=== PATIENT | male | born 1995 | race Hispanic/Latino ===

== ENCOUNTER 2021-02-05 13:28 | Emergency (ER) | payer OTHER, SELFPAY ==
--- NOTE | 2021-02-05 14:07 | EDPHYS ---
Physician Documentation [facility] Name: Edil Damon Age: 25 yrs Sex: Male : 1995 Arrival Date: 02/05/2021 Time: 13:30 Bed 15 Private MD: [facility] ED Physician Luis Hu HPI: 02/05 14:06 This 25 yrs old Male presents to ER via Ambulatory with complaints of Swollen kb Glands, Sore Throat. 14:06 The patient presents with sore throat. The patient describes throat pain as constant. kb Onset: The symptoms/episode began/occurred 2 week(s) ago. Severity of symptoms: At their worst the symptoms were moderate, in the emergency department the symptoms are unchanged. Modifying factors: The symptoms are alleviated by nothing, the symptoms are aggravated by swallowing, Patient's oral intake status: good. Associated signs and symptoms: Pertinent positives: fever, Sore throat. The patient has experienced similar episodes in the past, a few times. The patient has not recently seen a physician. Pt reports sore throat, swollen tonsils and intermittent fever for 2 weeks. . Historical: - Allergies: 13:40 TETRACYCLINES; iw 14:21 Minocycline; ll1 - Home Meds: 13:40 amlodipine oral 7.5 mg once daily [Active]; iw - PMHx: 13:40 Hypertensive disorder; iw - PSHx: 13:40 None; iw - Immunization history:: Adult Immunizations Client reports having NOT received the Covid vaccine. - Social history:: Smoking status: Patient denies any tobacco usage or history of. ROS: 14:04 Respiratory: Negative for shortness of breath, cough, wheezing, and pleuritic chest kb pain. 14:04 ENT: Positive for sore throat. 14:04 All other systems are negative. 14:05 Constitutional: Positive for fever. kb Exam: 14:05 Constitutional: This is a well developed, well nourished patient who is awake, alert, kb and in no acute distress. Head/Face: Normocephalic, atraumatic. Respiratory: Respirations even and unlabored. No increased work of breathing, no retractions or nasal flaring. Skin: Warm, dry with normal turgor. Normal color. MS/ Extremity: Pulses equal, no cyanosis. Neurovascular intact. Full, normal range of motion. Neuro: Awake and alert, GCS 15, oriented to person, place, time, and situation. Moves all extremities. Normal gait. Psych: Awake, alert, with orientation to person, place and time. Behavior, mood, and affect are within normal limits. 14:05 ENT: Posterior pharynx: Tonsils: bilaterally enlarged, Uvula: normal, midline, swelling, that is moderate, erythema, that is mild, exudate, is not appreciated. Vital Signs: 13:38 BP 145 / 90; Pulse 69; Resp 16; Temp 98.3; Pulse Ox 100% on R/A; Weight 102.06 kg; iw Height 6 ft. 3 in. (190.50 cm); 14:22 BP 140 / 77; Pulse 83; Resp 16; Pulse Ox 99% on R/A; ll1 14:22 BP 137 / 86; ll1 13:38 Body Mass Index 28.12 (102.06 kg, 190.50 cm) iw MDM: 13:32 Patient medically screened. kb 14:04 Data reviewed: vital signs, nurses notes. Data interpreted: Pulse oximetry: on room air kb is 100 %. Interpretation: normal. Counseling: I had a detailed discussion with the patient and/or guardian regarding: the historical points, exam findings, and any diagnostic results supporting the discharge/admit diagnosis, lab results, the need for outpatient follow up, an ENT specialist, to return to the emergency department if symptoms worsen or persist or if there are any questions or concerns that arise at home. 02/05 13:38 Order name: Strep 02/05 13:38 Order name: Group A Streptococcus Rapid Ct; Complete Time: 14:04 EDMS 02/05 14:03 Order name: Throat Culture EDSC Administered Medications: No medications were administered Disposition: 02/06 03:44 Co-signature as Attending Physician, Luis Hu MD I agree with the assessment and bry plan of care. Disposition Summary: 02/05/21 14:07 Discharge Ordered Location: Home Condition: Stable kb Diagnosis - Acute tonsillitis, unspecified kb Followup: kb - With: Emergency Department - When: As needed - Reason: Worsening of condition Followup: kb - With: Maria Luisa Samson MD - When: 2 - 3 days - Reason: Recheck today's complaints Discharge Instructions: - Discharge Summary Sheet kb - Tonsillitis, [id number] kb Forms: - Medication Reconciliation Form kb - Thank You Letter kb - Antibiotic Education kb - Prescription Opioid Use kb - Work release form eb Prescriptions: - Amoxicillin 875 mg Oral Tablet - take 1 tablet by ORAL route every 12 hours for 10 days; 20 tablet; Refills: 0, kb Product Selection Permitted Signatures: Dispatcher [employer] EDCandelaria Avelar, FELICIANOC SUPERINTENDENT MENAGERIE-Luis Burns MD MD cha Williams, Irene RN RN iw Danika Mckeon RN RN ll1 Corrections: (The following items were deleted from the chart) 02/05 14:05 14:04 Constitutional: Negative for fever, chills, and weight loss, kb kb
--- NOTE | 2021-02-05 14:07 | ER ---
Nurse's Notes [facility] Name: Edil Damon Age: 25 yrs Sex: Male : 1995 Arrival Date: 02/05/2021 Time: 13:30 Bed 15 Private MD: Sergio Collazo Diagnosis: Acute tonsillitis, unspecified Presentation: 02/05 13:38 Chief complaint: Patient states: tonsils and lymph nodes have been swollen X 2 weeks , iw recently had fever. Coronavirus screen: sore throat, Client presents with at least one sign or symptom that may indicate coronavirus-19. Ebola Screen: Patient negative for fever greater than or equal to 101.5 degrees Fahrenheit, and additional compatible Ebola Virus Disease symptoms Patient denies exposure to infectious person. Patient denies travel to an Ebola-affected area in the 21 days before illness onset. No symptoms or risks identified at this time. Initial Sepsis Screen: Does the patient meet any 2 criteria? No. Patient's initial sepsis screen is negative. Does the patient have a suspected source of infection? No. Patient's initial sepsis screen is negative. Risk Assessment: Do you want to hurt yourself or someone else? Patient reports no desire to harm self or others. Onset of symptoms was January 24, 2021. 13:38 Method Of Arrival: Ambulatory iw 13:38 Acuity: JENA 4 iw Historical: - Allergies: 13:40 TETRACYCLINES; iw 14:21 Minocycline; ll1 - Home Meds: 13:40 amlodipine oral 7.5 mg once daily [Active]; iw - PMHx: 13:40 Hypertensive disorder; iw - PSHx: 13:40 None; iw - Immunization history:: Adult Immunizations Client reports having NOT received the Covid vaccine. - Social history:: Smoking status: Patient denies any tobacco usage or history of. Screenin:53 Abuse screen: Denies threats or abuse. Denies injuries from another. Nutritional iw screening: No deficits noted. Tuberculosis screening: No symptoms or risk factors identified. Fall Risk None identified. Assessment: 13:52 General: Appears in no apparent distress. Behavior is calm, cooperative. Pain: iw Complains of pain in throat. Neuro: Level of Consciousness is awake, alert, obeys commands, Oriented to person, place, time, situation, Moves all extremities. Full function. Cardiovascular: Patient's skin is warm and dry. Respiratory: Airway is patent Respiratory effort is even, unlabored, Breath sounds are clear bilaterally. EENT: Throat is reddened has enlarged tonsils bilaterally Reports pain in throat. Derm: Skin is intact, is healthy with good turgor. 14:22 Reassessment: No changes from previously documented assessment. Patient and/or family ll1 updated on plan of care and expected duration. Pain level reassessed. Patient is alert, oriented x 3, equal unlabored respirations, skin warm/dry/pink. Vital Signs: 13:38 BP 145 / 90; Pulse 69; Resp 16; Temp 98.3; Pulse Ox 100% on R/A; Weight 102.06 kg; iw Height 6 ft. 3 in. (190.50 cm); 14:22 BP 140 / 77; Pulse 83; Resp 16; Pulse Ox 99% on R/A; ll1 14:22 BP 137 / 86; ll1 13:38 Body Mass Index 28.12 (102.06 kg, 190.50 cm) iw ED Course: 13:30 Patient arrived in ED. as 13:30 Sergio Collazo DO is Private Physician. as 13:30 Candelaria Duncan [facility]-C [facility] kb 13:30 Luis Hu MD is Attending Physician. kb 13:40 Triage completed. iw 13:41 Arm band placed on. iw 13:52 Talita Amador, RN is Primary Nurse. iw 13:54 No provider procedures requiring assistance completed. Patient did not have IV access iw during this emergency room visit. 14:07 Maria Luisa Samson MD is Referral Physician. kb 14:22 Patient has correct armband on for positive identification. Bed in low position. Call ll1 light in reach. Side rails up X 1. Pulse ox on. NIBP on. Administered Medications: No medications were administered Outcome: 14:07 Discharge ordered by . kb 14:21 Discharged to home ambulatory. ll1 14:21 Condition: stable 14:21 Discharge instructions given to patient, Instructed on discharge instructions, follow up and referral plans. medication usage, Demonstrated understanding of instructions, follow-up care, medications, Prescriptions given X 1. 14:23 Patient left the ED. ll1 Signatures: Candelaria Duncan FNP-C FNP-Ckb Alicia Long Irene, RN RN iw Danika Mckeon, RN RN ll1
[2021-02-05 14:36] VITALS: TEMP 98.3
[2021-02-05 14:38] VITALS: BP 137/86; O2SAT 99
--- OUTSIDE RECORDS SUMMARY | 2021-02-05 23:42 | XMS REPORT | Continuity of Care Document ---
:1995 Author Organization [facility] t Address [address] [place] [address] Care Team Providers Name Role Phone PCP, PATIENT DOES NOT HAVE A Primary Care Physician Chris PAUL Attending Clinician Unavailable Deandre HAZEL Attending Clinician Problems Condition Condition Condition Status Onset Resolution Last Treating Co mments Source Name Details Category Date Date Treatment Clinician Date No known No known Disease Unive rs active active ity of problems problems [facility] Allergies, Adverse Reactions, Alerts Allergy Allergy Status Severity Reaction(s) Onset Inactive Treating Comm ents Source Name Type Date Date Clinician Minocycl Propensi Active Swelling Univ ers ine ty to 04-20 ity of adverse 00:00: [place] reaction 00 Medical s Branch MINOCYCL DRUG Active High Swelling Univer s INE INGREDI 04-20 ity of 00:00: [place] 00 Medical [place] Social History Social Habit Start Date Stop Date Quantity Comments Source Exposure to Not sure [facility] SARS-CoV-2 (event) Medica l Branch Alcohol intake 2021-01-21 2021-01-21 0 /d [facility] 00:00:00 00:00:00 Medical [place] Sex Assigned At [birth year] [facility] 00:00:00 00:00:00 Medical Branch Smoking Status Start Date Stop Date Source Never smoker [facility] Medications Ordered Filled Start Stop Current Ordering Indication Dosage Frequency Signature Comments Components Source Medication Medication Date Date Medication? Clinician (SIG) Name Name amLODIPine 2020-03 Yes [id number] 2.5mg Take 1 Univers 2.5 mg 0-29 tablet by ity of tablet 00:00: mouth at [place] 00 bedtime. Medical Branch amLODIPine 2020-03 Yes [id number] 5mg Take 1 U nivers 5 mg tablet 0-29 tablet by ity of 00:00: mouth [place] 00 daily. Medical Branch amLODIPine 2020- No [id number] 5mg Take 1 Univers 5 mg tablet 9-29 10-29 tablet by it y of 00:00: 00:00 mouth [place] 00 :00 daily. Medical Appointmen Branch t needed for further refills. Please contact office, predniSONE Yes 10mg Take 10 mg U nivers 10 mg 8-24 by mouth ity of tablet 16:02: daily. [place] [address] Medical Branch tretinoin Yes Apply to Uni vers 0.05 % 1-26 affected ity of cream 00:00: area(s) at [place] 00 bedtime. Medical Branch clindamycin 2015-03 Yes [id number] Apply qHS Univers (CLEOCIN T) 0-24 to face ity o f 1 % gel 00:00: after [place] 00 tretinoin Medical cream has Branch dried Vital Signs Vital Name Observation Time Observation Value Comments Source Systolic blood 2021-01-21 20:43:00 155 [facility]Hg[facility] pressure [facility] Diastolic blood 2021-01-21 20:43:00 82 mm[facility]Hg[facility] 2021-01-21 20:41:00 82 /min [facility] Body height 2021-01-21 20:41:00 193 cm [facility] Body weight 2021-01-21 20:41:00 103.874 kg [facility] BMI 2021-01-21 20:41:00 27.87 kg/m2 [facility] Oxygen saturation 2021-01-21 20:41:00 98 /min Uni versity [facility] in Arterial blood Medical Br anch by Pulse oximetry Procedures This patient has no known procedures. Encounters Start End Encounter Admission Attending Care Care Encounter Source Date/Time Date/Time Type Type Clinicians Facility Department ID 2021-02-02 2021-02-02 ambulatory [facility] [id number] [facility]00 [facility] 2021-01-21 2021-01-21 Outpatient Brissa PAUL [facility] [id number] Univers 15:40:00 16:04:32 LATONYA galan [facility] 2021-01-21 2021-01-21 [facility] [id number] Univers 15:25:13 16:04:32 Visit Latonya LAST [id number] In[place] [id number] Daylin POLO [id number] [address] 2021-01-21 2021-01-21 Outpatient Brissa PAUL [facility] [id number] Univers 15:40:00 15:40:00 LATONYA [id number] jeovany magana [facility] 2020-12-15 2020-12-15 [id number]00 [facility] Outpati ent Clinics Results This patient has no known results.
== END 2021-02-05 14:23 | disposition home or self-care (01) ==
LOC: ER 13:28
DX: J03.90 Acute tonsillitis, unspecified (principal); Z88.3 Allergy status to other anti-infective agents
CPT/HCPCS: 87070; 87081; 99283

== ENCOUNTER 2021-02-07 17:31 | Emergency (ER) | payer SELFPAY ==
--- OUTSIDE RECORDS SUMMARY | 2021-02-07 17:34 | XMS REPORT | Continuity of Care Document ---
:1995 Author Organization [facility] t Address [address] [place] [address] Care Team Providers Name Role Phone PCP, PATIENT DOES NOT HAVE A Primary Care Physician Shawa elizabet PAUL Attending Clinician Unavailable Deandre HAZEL Attending Clinician Problems Condition Condition Condition Status Onset Resolution Last Treating Co mments Source Name Details Category Date Date Treatment Clinician Date No known No known Disease Unive rs active active ity of problems problems [facility] Allergies, Adverse Reactions, Alerts Allergy Allergy Status Severity Reaction(s) Onset Inactive Treating Comm ents Source Name Type Date Date Clinician Minocycl Propensi Active Swelling Univ ers ine ty to 04-20 ity of adverse 00:00: [place] reaction 00 [facility] s Branch MINOCYCL DRUG Active High Swelling Univer s INE INGREDI 04-20 ity of 00:00: [place] 00 [facility] Social History Social Habit Start Date Stop Date Quantity Comments Source Exposure to Not sure [facility] SARS-CoV-2 (event) Medica l Branch Alcohol intake 2021-01-21 2021-01-21 0 /d [facility] 00:00:00 00:00:00 [facility] Sex Assigned At [birth year] [facility] [place] 00:00:00 00:00:00 Medical [place] Smoking Status Start Date Stop Date Source Never smoker [facility] Medications Ordered Filled Start Stop Current Ordering Indication Dosage Frequency Signature Comments Components Source Medication Medication Date Date Medication? Clinician (SIG) Name Name amLODIPine 2020-03 Yes [id number] 2.5mg Take 1 Univers 2.5 mg 0-29 tablet by ity of tablet 00:00: mouth at [place] 00 bedtime. Medical Branch amLODIPine 2020-03 Yes [id number] 5mg Take 1 U nivers 5 mg tablet 0-29 tablet by ity of 00:00: mouth [place] 00 daily. Medical Branch amLODIPine [id number] 5mg Take 1 Univers 5 mg tablet 9-29 10-29 tablet by it y of 00:00: 00:00 mouth [place] 00 :00 daily. Medical Appointmen Branch t needed for further refills. Please contact office, predniSONE Yes 10mg Take 10 mg U nivers 10 mg 8-24 by mouth ity of tablet 16:02: daily. [place] [address] Medical Branch tretinoin Yes Apply to Uni vers 0.05 % 1-26 affected ity of cream 00:00: area(s) at [place] 00 bedtime. Medical Branch clindamycin 2015-03 Yes [id number] Apply qHS Univers (CLEOCIN T) 0-24 to face ity o f 1 % gel 00:00: after [place] 00 tretinoin Medical cream has Branch dried Vital Signs Vital Name Observation Time Observation Value Comments Source Systolic blood 2021-01-21 20:43:00 155 mm[Hg] Univer sity [facility] pressure [facility] Branch Diastolic blood 2021-01-21 20:43:00 82 mm[Hg] [facility] Heart rate 2021-01-21 20:41:00 82 /min [facility] Body height 2021-01-21 20:41:00 193 cm [facility] Body weight 2021-01-21 20:41:00 103.874 kg [facility] BMI 2021-01-21 20:41:00 27.87 kg/m2 [facility] Oxygen saturation 2021-01-21 20:41:00 98 /min Uni versity [facility] in Arterial blood Medical Br anch by Pulse oximetry Procedures This patient has no known procedures. Encounters Start End Encounter Admission Attending Care Care Encounter Source Date/Time Date/Time Type Type Clinicians Facility Department ID 2021-02-022021-02-02 ambulatory [facility] [id number] [facility] St 00:00:00 00:00:00 Porsha nava Outpati ent Clinics 2021-01-21 2021-01-21 Outpatient Brissa [facility] [id number] Univers 15:40:00 16:04:32 LATONYA galan [facility] 2021-01-21 2021-01-21 [facility] [id number] Univers 15:25:13 16:04:32 Visit Latonya GROTON [id number] [facility] [id number] Daylin LOPEZESSIO [id number] [address] 2021-01-21 2021-01-21 Outpatient Brissa [facility] [id number] Univers 15:40:00 15:40:00 [facility] [id number] jeovany galan [facility] 2020-12-15 2020-12-15 Outpatient [facility] [id number] [facility] 00:00:00 00:00:00 Porsha nava Outpati ent Clinics Results This patient has no known results.
[2021-02-07] MEDS ORDERED: NA CHLORIDE 0.9% 1,000 ML ONE (18:14)
[2021-02-07 18:34] LABS: Urine Blood Negative (Negative); Urine Glucose Negative (Negative); Urine Protein Negative (Negative)
[2021-02-07 18:42] LABS: Absolute Lymphocytes (CBC) 9.4 K/uL (0.7-4.9); Basophils % 0.5 % (0-1.3); Hematocrit 48.5 % (39.6-49.0); Lymphocytes % 73.3 % (15.3-44.8); RBC Red Blood Cell Count 5.38 M/uL (4.33-5.43)
[2021-02-07 19:17] LABS: Urine Bacteria <20 /HPF (NONE SEEN); Urine RBC NONE SEEN /HPF (NONE SEEN)
[2021-02-07 19:19] LABS: Albumin 3.7 g/dL (3.4-5.0); Bilirubin Direct 2.4 mg/dL (0-0.2); Bilirubin Total 3.4 mg/dL (0.2-1.0); Potassium 4.2 mmol/L (3.5-5.1); Protein, Total 8.2 g/dL (6.4-8.2)
--- NOTE | 2021-02-07 20:33 | RAD REPORT ---
EXAM DESCRIPTION: CT - Abdomen Pelvis W Contrast - 02/07/2021 8:08 pm CLINICAL HISTORY: ABD PAIN COMPARISON: Abdomen Pelvis W Contrast dated 03/01/2016 TECHNIQUE: Biphasic, helical CT imaging of the abdomen and pelvis was performed following 100 ml non -ionic IV contrast. No oral contrast. All CT scans are performed using dose optimization technique as appropriate and may include automated exposure control or mA/KV adjustment according to patient size. FINDINGS: No suspicious findings in the lung bases. The liver, spleen, and pancreas show no suspicious findings. Spleen is prominent similar to prior swetha ging. Gallbladder is tightly contracted limiting assessment. No biliary tree dilatation. Symmetric renal function is seen with no hydronephrosis or suspicious renal mass. No pyelonephritis o r acute parenchymal process. No bladder abnormalities. No adrenal abnormalities. No dilated bowel loops or bowel wall thickening. No direct or indirect evidence for appendicitis. A f ew small mesenteric lymph nodes are present. No free air, free fluid or inflammatory stranding. No h ernia, mass or bulky lymphadenopathy. No suspicious bony findings. IMPRESSION: Contrast enhanced CT abdomen and pelvis showing no significant or suspicious finding.
--- NOTE | 2021-02-07 20:45 | EDPHYS ---
Physician Documentation [facility] Name: Edil Damon Age: 25 yrs Sex: Male : 1995 Arrival Date: 02/07/2021 Time: 17:34 Bed Treatment Private MD: [facility] ED Physician Piotr Garner HPI: 02/07 18:11 This 25 yrs old Male presents to ER via Ambulatory with complaints of Sore pm1 throat, decreased appetite, Urinary Problem. 18:11 The patient presents with The patient presents with abdominal bloating and decreased pm1 appetite. Onset: The symptoms/episode began/occurred 1 week(s) ago. The symptoms do not radiate. Associated signs and symptoms: Pertinent positives: Sore throat, Pertinent negatives: nausea, vomiting, and diarrhea, chest pain, constipation, dysuria, fever, shortness of breath. Modifying factors: The symptoms are alleviated by nothing, the symptoms are aggravated by food. The patient has been recently seen at the [facility] Emergency Department, last week, for similar complaints diagnosed with pharyngitis and prescribed abx. Historical: - Allergies: 17:52 Minocycline; tw2 17:52 TETRACYCLINES; tw2 - Home Meds: 17:52 amlodipine oral 7.5 mg once daily [Active]; tw2 - PMHx: 17:52 Hypertensive disorder; tw2 - PSHx: 17:52 None; tw2 - Immunization history:: Client reports having NOT received the Covid vaccine. - Social history:: Smoking status: Patient denies any tobacco usage or history of. ROS: 18:11 Constitutional: Negative for fever, chills, and weight loss. pm1 18:11 Cardiovascular: Negative for chest pain, palpitations, and edema, Respiratory: Negative for shortness of breath, cough, wheezing, and pleuritic chest pain. 18:11 Back: Negative for injury and pain, MS/Extremity: Negative for injury and deformity, Skin: Negative for injury, rash, and discoloration, Neuro: Negative for headache, weakness, numbness, tingling, and seizure. 18:11 ENT: Positive for sore throat, Negative for drainage from ear(s), ear pain. 18:11 Abdomen/GI: Positive for nausea, bloating, Negative for diarrhea, constipation. 18:11 : Positive for Dark urine, Negative for urinary frequency, burning with urination. 18:11 All other systems are negative. Exam: 18:11 Constitutional: This is a well developed, well nourished patient who is awake, alert, pm1 and in no acute distress. Head/Face: Normocephalic, atraumatic. 18:11 Back: No spinal tenderness. No costovertebral tenderness. Full range of motion. Skin: Warm, dry with normal turgor. Normal color with no rashes, no lesions, and no evidence of cellulitis. MS/ Extremity: Pulses equal, no cyanosis. Neurovascular intact. Full, normal range of motion. 18:11 Cardiovascular: Exam negative for acute changes, Rate: normal, Rhythm: regular, Pulses: no pulse deficits are appreciated. 18:11 Respiratory: Exam negative for acute changes, respiratory distress, shortness of breath. 18:11 Abdomen/GI: Inspection: abdomen appears normal, Palpation: abdomen is soft and non-tender, in all quadrants. 18:11 Neuro: Exam negative for acute changes, Orientation: is normal, Mentation: is normal, Motor: is normal, moves all fours. Vital Signs: 17:54 BP 110 / 104; Pulse 96; Resp 19; Temp 99.3(TE); Pulse Ox 99% on R/A; Weight 102.06 kg tw2 (R); Height 6 ft. 3 in. (190.50 cm); Pain 0/10; 17:55 Pain 0/10; tw2 19:32 BP 115 / 98; Pulse 92; Resp 18; Pulse Ox 100% on R/A; ld1 20:17 BP 118 / 95; Pulse 88; Resp 18; Pulse Ox 100% on R/A; ld1 17:54 Body Mass Index 28.12 (102.06 kg, 190.50 cm) tw2 MDM: 18:13 Patient medically screened. pm1 19:22 ED course: Patient updated on strep swab culture results, positive for strep. pm1 20:43 Data reviewed: vital signs. Data interpreted: Pulse oximetry: on room air is 100 %. pm1 Interpretation: normal. Counseling: I had a detailed discussion with the patient and/or guardian regarding: the historical points, exam findings, and any diagnostic results supporting the discharge/admit diagnosis, lab results, radiology results, the need for outpatient follow up, to return to the emergency department if symptoms worsen or persist or if there are any questions or concerns that arise at home. 02/07 18:11 Order name: Basic Metabolic Panel pm1 02/07 18:11 Order name: CBC with Diff pm1 02/07 18:11 Order name: Hepatic Function pm1 02/07 18:11 Order name: Lipase; Complete Time: 19:32 pm1 02/07 18:11 Order name: Sanders Screen Profile; Complete Time: 19:23 pm1 02/07 18:11 Order name: Urine Microscopic Only; Complete Time: 19:23 pm1 02/07 18:11 Order name: Basic Metabolic Panel; Complete Time: 19:23 EDMS 02/07 18:11 Order name: CBC with Automated Diff EDMS 02/07 18:11 Order name: Liver (Hepatic) Function; Complete Time: 19:32 EDMS 02/07 18:13 Order name: Flu; Complete Time: 19:23 pm1 02/07 18:34 Order name: Urine Dipstick-Ancillary; Complete Time: 19:23 EDMS 02/07 19:22 Order name: SARS-COV-2 RT PCR; Complete Time: 20:43 EDMS 02/07 20:49 Order name: Manual Differential EDMS 02/07 18:11 Order name: IV Saline Lock; Complete Time: 18:34 pm1 02/07 18:11 Order name: Labs collected and sent; Complete Time: 18:34 pm1 02/07 18:11 Order name: CT Abd/Pelvis - IV Contrast Only; Complete Time: 20:43 pm1 02/07 18:11 Order name: Urine Dipstick-Ancillary (obtain specimen); Complete Time: 18:34 pm1 Administered Medications: 18:34 Drug: NS 0.9% 1000 ml Route: IV; Rate: 1000 ml; Site: left antecubital; ld1 Disposition: 02/08 07:03 Co-signature as Attending Physician, Piotr Garner MD I agree with the assessment and rn plan of care. Attestation: The patient's history, exam findings, diagnostics, and a summary of any interventions or procedures was reviewed in detail with Aleksandr Pritchard NP. Disposition Summary: 02/07/21 20:44 Discharge Ordered Location: Home pm1 Problem: new pm1 Symptoms: have improved pm1 Condition: Stable pm1 Diagnosis - Other infectious mononucleosis without complication pm1 Followup: pm1 - With: Emergency Department - When: As needed - Reason: Worsening of condition Followup: pm1 - With: Private Physician - When: 2 - 3 days - Reason: Recheck today's complaints, Continuance of care, Re-evaluation by your physician Discharge Instructions: - Discharge Summary Sheet pm1 - Infectious Mononucleosis pm1 Forms: - Medication Reconciliation Form pm1 - Thank You Letter pm1 - Antibiotic Education pm1 - Prescription Opioid Use pm1 Signatures: Dispatcher [employer] EDNC Piotr Garner MD MD rn Marinas, Patrick, NP [employer] pm1 Jacqueline Wong RN RN tw2 Itzel Saba RN RN ld1 Corrections: (The following items were deleted from the chart) 02/07 19:22 18:13 CORONAVIRUS+[email or web address] ordered. [facility]
--- NOTE | 2021-02-07 20:45 | ER ---
Nurse's Notes [facility] Name: Edil Damon Age: 25 yrs Sex: Male : 1995 Arrival Date: 02/07/2021 Time: 17:34 Bed Treatment Private MD: Sergio Collazo Diagnosis: Other infectious mononucleosis without complication Presentation: 02/07 17:50 Chief complaint: Patient states: i came on Sunday but it was mostly a problem with my tw2 tonsils and i am getting better. but i have noticed i have been having lack of appetite and like it is going to come back up. also i wake up sweating and my urine has been darker since Sunday. also after i eat i feel bloated and like its going to come right back up. Coronavirus screen: Client presents with at least one sign or symptom that may indicate coronavirus-19. Standard/surgical mask placed on the client. Provider contacted for isolation considerations. Coronavirus screen: chills. Ebola Screen: Patient denies travel to an Ebola-affected area in the 21 days before illness onset. Initial Sepsis Screen: Does the patient meet any 2 criteria? No. Patient's initial sepsis screen is negative. Does the patient have a suspected source of infection? No. Patient's initial sepsis screen is negative. Risk Assessment: Do you want to hurt yourself or someone else? Patient reports no desire to harm self or others. Onset of symptoms was February 07, 2021. 17:50 Method Of Arrival: Ambulatory tw2 17:50 Acuity: JENA 3 tw2 17:55 Chief complaint:. tw2 Triage Assessment: 17:53 General: Appears in no apparent distress. slender, well groomed, Behavior is calm, tw2 cooperative, appropriate for age. General: Reports waking up sweating. Pain: Denies pain. GI: Reports indigestion, intolerance of fluids, intolerance of food. Historical: - Allergies: 17:52 Minocycline; tw2 17:52 TETRACYCLINES; tw2 - Home Meds: 17:52 amlodipine oral 7.5 mg once daily [Active]; tw2 - PMHx: 17:52 Hypertensive disorder; tw2 - PSHx: 17:52 None; tw2 - Immunization history:: Client reports having NOT received the Covid vaccine. - Social history:: Smoking status: Patient denies any tobacco usage or history of. Screenin:06 Abuse screen: Denies threats or abuse. Denies injuries from another. Nutritional ld1 screening: No deficits noted. Tuberculosis screening: No symptoms or risk factors identified. Fall Risk None identified. Assessment: 18:06 General: Appears in no apparent distress. comfortable, Behavior is calm, cooperative, ld1 appropriate for age. Pain: Denies pain. Neuro: Level of Consciousness is awake, alert, obeys commands, Oriented to person, place, time, situation, Appropriate for age. Cardiovascular: Capillary refill < 3 seconds Patient's skin is warm and dry. Respiratory: Airway is patent Respiratory effort is even, unlabored, Respiratory pattern is regular, symmetrical. GI: Abdomen is flat, non-distended, Bowel sounds present X 4 quads. Abd is soft Abd is non tender. GI:. : Reports dark colored urine. EENT: No signs and/or symptoms were reported regarding the EENT system. Derm: No signs and/or symptoms reported regarding the dermatologic system. Musculoskeletal: No signs and/or symptoms reported regarding the musculoskeletal system. 19:32 Reassessment: Patient appears in no apparent distress at this time. No changes from ld1 previously documented assessment. Patient and/or family updated on plan of care and expected duration. Pain level reassessed. Patient is alert, oriented x 3, equal unlabored respirations, skin warm/dry/pink. 20:17 Reassessment: Patient appears in no apparent distress at this time. Patient and/or ld1 family updated on plan of care and expected duration. Pain level reassessed. Patient is alert, oriented x 3, equal unlabored respirations, skin warm/dry/pink. Vital Signs: 17:54 BP 110 / 104; Pulse 96; Resp 19; Temp 99.3(TE); Pulse Ox 99% on R/A; Weight 102.06 kg tw2 (R); Height 6 ft. 3 in. (190.50 cm); Pain 0/10; 17:55 Pain 0/10; tw2 19:32 BP 115 / 98; Pulse 92; Resp 18; Pulse Ox 100% on R/A; ld1 20:17 BP 118 / 95; Pulse 88; Resp 18; Pulse Ox 100% on R/A; ld1 17:54 Body Mass Index 28.12 (102.06 kg, 190.50 cm) tw2 ED Course: 17:34 Patient arrived in ED. mr 17:35 Sergio Collazo DO is Private Physician. mr 17:52 Triage completed. tw2 17:52 Arm band placed on. tw2 18:03 Aleksandr Pritchard, KIT is PHCP. pm1 18:03 Piotr Garner MD is Attending Physician. pm1 18:06 Itzel Saba, ROBINSON is Primary Nurse. ld1 18:06 Patient has correct armband on for positive identification. Bed in low position. Call ld1 light in reach. Side rails up X2. Pulse ox on. NIBP on. Door closed. Noise minimized. 18:06 No provider procedures requiring assistance completed. ld1 18:33 Flu Sent. ld1 18:34 Urine Microscopic Only Sent. ld1 18:34 Inserted saline lock: 20 gauge in left antecubital area, using aseptic technique. Blood ld1 collected. 20:08 CT Abd/Pelvis - IV Contrast Only In Process Unspecified. EDMS 20:53 IV discontinued, intact, bleeding controlled, No redness/swelling at site. ld1 Administered Medications: 18:34 Drug: NS 0.9% 1000 ml Route: IV; Rate: 1000 ml; Site: left antecubital; ld1 Outcome: 20:44 Discharge ordered by MD. pm1 20:53 Discharged to home ambulatory, with family. ld1 20:53 Condition: stable 20:53 Discharge instructions given to patient, family, Instructed on discharge instructions, follow up and referral plans. Demonstrated understanding of instructions, follow-up care. 20:53 Patient left the ED. ld1 Signatures: Dispatcher [employer] EDMS Vasquez, Fe [place], KIT [employer] pm1 Jacqueline Wong, ROBINSON RN tw2 Itzel Saba, ROBINSON RN ld1 Corrections: (The following items were deleted from the chart) 17:55 17:50 Chief complaint: Patient states: i came on Sunday but it was mostly a problem tw2 with my tonsils and i am getting better. but i have noticed i have been having lack of appetite and like it is going to come back up. also i wake up sweating and my urine has been darker since Sunday. tw2 19:22 18:33 CORONAVIRUS+MR.LAB.BRZ drawn and sent. ld1 EDMS
[2021-02-07 22:46] VITALS: TEMP 99.3
[2021-02-07 22:48] VITALS: O2SAT 100
[2021-02-07 22:50] VITALS: BP 118/95
[2021-02-07 23:18] LABS: Blood Morphology Comment NOT SEEN (NOT SEEN); Platelet Estimate ADEQ
== END 2021-02-07 20:53 | disposition home or self-care (01) ==
LOC: ER 17:31
DX: B27.80 Other infectious mononucleosis without complication (principal); I10 Essential (primary) hypertension; Z20.822 Contact with and (suspected) exposure to COVID-19; Z88.1 Allergy status to other antibiotic agents
CPT/HCPCS: 36415; 74177; 80048; 80076; 81003; 81015; 83690; 85025; 86308; 87804; 99284; J7030; Q9967; U0003